=== PATIENT | female | born 1970 | race Two or more races ===

== ENCOUNTER 2016-10-30 16:21 | Emergency (ER) | payer MEDICAID ==
[~2016-10-30] VITALS: Ht 157.5 cm; Wt 70.3 kg
[2016-10-30 17:46] LABS: Basophils # (auto) 0.1 uL; Basophils % (auto) 0.7 % (0.0-2.0); Eosinophils # (auto) 0.1 uL; Eosinophils % (auto) 0.6 % (0.0-7.0); Hematocrit 44.7 % (36.0-46.0); Hemoglobin 14.9 g/dL (12.2-16.2); Lymphocytes # (auto) 3.5 uL; Lymphocytes % (auto) 38.7 % (10.0-50.0); Mean Corpuscular Hemoglobin 27.7 pg (28.0-32.0); Mean Corpuscular Hgb Conc. 33.5 g/dL (32.0-36.0); Mean Corpuscular Volume 82.7 fL (80.0-100.0); Mean Platelet Volume 10.6 fL (7.4-10.4); Monocytes # (auto) 0.6 uL; Monocytes % (auto) 6.6 % (0.0-12.0); Neutrophils # (auto) 4.8 uL; Neutrophils % (auto) 53.4 % (37.0-80.0); Platelet Count (auto) 163 10^3/uL (140-450)
[2016-10-30 18:03] LABS: Albumin 4.3 g/dL (3.4-5.0); Alkaline Phosphatase 74 U/L (45-117); Anion Gap 10 (5-15); Aspartate Aminotransferase 14 U/L (15-37); BUN/Creatinine Ratio 18.7; Bilirubin, Total 0.2 mg/dL (0.2-1.0); Blood Urea Nitrogen 14 mg/dL (7-18); Calcium 9.4 mg/dL (8.5-10.1); Carbon Dioxide 23 mmol/L (21-32); Chloride 106 mmol/L (98-107); GFR African American 107 mL/min; GFR Non-African American 88 mL/min; Glucose 102 mg/dL (74-106); Magnesium 2.7 mg/dL (1.6-2.6); Sodium 139 mmol/L (136-145); Total Protein 8.5 g/dL (6.4-8.2)
[2016-10-30 22:34] VITALS: BP 128/73
== END 2016-10-30 23:51 | disposition home or self-care (01) ==
LOC: ER 16:31
DX: K52.9 Noninfective gastroenteritis and colitis, unspecified (principal); E86.0 Dehydration; R51 Headache; R42 Dizziness and giddiness; E83.41 Hypermagnesemia
CPT/HCPCS: 36415; 70450; 80053; 83735; 84484; 85025; 93005

== ENCOUNTER 2018-08-27 13:02 | Emergency (ER) | payer MEDICAID ==
[~2018-08-27] VITALS: Ht 160 cm; Wt 72.6 kg
[2018-08-27] MEDS ORDERED: LORazepam 2MG/ML-1ML VIAL IV ONE ×2 (14:30→14:45)
[2018-08-27] MEDS ORDERED: LEVETIRACETAM INJ 1,000 MG in D5W 5% 100 ML IV ONE (14:30)
[2018-08-27] MEDS ORDERED: SODIUM CHLORIDE 0.9% 500 ML IVB ONE (14:36)
[2018-08-27] MEDS ORDERED: SODIUM CHLORIDE 0.9% 1,000 ML IV ONE (14:36)
[2018-08-27 15:17] LABS: Albumin 3.7 g/dL (3.4-5.0); BUN/Creatinine Ratio 28.3; Calcium 8.7 mg/dL (8.5-10.1); Potassium 3.3 mmol/L (3.5-5.1)
[2018-08-27 15:19] LABS: Bilirubin, Total 0.3 mg/dL (0.2-1.0); Total Protein 7.7 g/dL (6.4-8.2)
[2018-08-27 15:37] LABS: Basophils # (auto) 0.1 uL; Basophils % (auto) 0.5 % (0.0-2.0); Eosinophils # (auto) 0.1 uL; Eosinophils % (auto) 0.8 % (0.0-7.0); Hematocrit 43.1 % (36.0-46.0); Hemoglobin 14.5 g/dL (12.2-16.2); Lymphocytes # (auto) 1.4 uL; Lymphocytes % (auto) 15.5 % (10.0-50.0); Mean Corpuscular Hemoglobin 28.5 pg (28.0-32.0); Mean Corpuscular Hgb Conc. 33.7 g/dL (32.0-36.0); Mean Corpuscular Volume 84.6 fL (80.0-100.0); Monocytes # (auto) 0.6 uL; Monocytes % (auto) 6.3 % (0.0-12.0); Neutrophils # (auto) 7.2 uL; Neutrophils % (auto) 76.9 % (37.0-80.0); Platelet Count (auto) 135 10^3/uL (140-450); Red Cell Distribution Width 13.2 % (11.8-14.3); White Blood Cell 9.3 10^3/uL (4.4-10.8)
[2018-08-27 16:22] LABS: Alcohol, Urine < 3.0 mg/dL (0-5); Amphetamine Screen, Urine NEGATIVE (NEGATIVE); Barbiturate Scree,Urine NEGATIVE (NEGATIVE); Benzodiazephine Screen, Urine NEGATIVE (NEGATIVE); Cannabinoid Screen, Urine NEGATIVE (NEGATIVE); Cocaine Screen, Urine NEGATIVE (NEGATIVE); Opiate Scree,Urine NEGATIVE (NEGATIVE); Phencyclidine Screen, Urine NEGATIVE (NEGATIVE)
[2018-08-27 17:05] LABS: Urine Bacteria FEW /hpf (None Seen); Urine Blood TRACE /uL (Negative); Urine Specific Gravity 1.008 (1.001-1.035); Urine WBC 1 /hpf (0 - 5)
[2018-08-27] MEDS ORDERED: IOHEXOL 350 MG/ML 100ML IJ ONE (17:54)
[2018-08-27] MEDS ORDERED: POTASSIUM EFFERVESENT TAB 25 MEQ PO ONE (18:15)
[2018-08-27 18:50] VITALS: BP 135/62
== END 2018-08-27 19:00 | disposition home or self-care (01) ==
LOC: ER 13:02 → EDBD 13:02 → ER 19:00
DX: G40.909 Epilepsy, unspecified, not intractable, without status epilepticus (principal); E87.6 Hypokalemia
CPT/HCPCS: 36415; 70450; 71046; 71250; 80053; 80307; 81001; 83735; 84443; 85025; 93005; 96374; 96375; 99284; J1953; J2060; J7030; J7040; J7060

== ENCOUNTER 2020-09-07 12:46 | Emergency (ER) | payer MEDICAID ==
[~2020-09-07] VITALS: Ht 162.6 cm; Wt 63.5 kg
[2020-09-07 14:32] LABS: Basophils # (auto) 0.1 10 ^3/uL (0-0.2); Eosinophils # (auto) 0 10 ^3/uL (0-0.8); Eosinophils % (auto) 0.2 % (0.0-7.0); Hematocrit 40.6 % (36.0-46.0); Hemoglobin 13.8 g/dL (12.2-16.2); Lymphocytes # (auto) 1.7 10 ^3/uL (0.4-5.4); Lymphocytes % (auto) 29.9 % (10.0-50.0); Mean Corpuscular Hemoglobin 27.9 pg (28.0-32.0); Mean Corpuscular Hgb Conc. 33.9 g/dL (32.0-36.0); Mean Corpuscular Volume 82.4 fL (80.0-100.0); Monocytes # (auto) 0.4 10 ^3/uL (0-1.3); Monocytes % (auto) 6.5 % (0.0-12.0); Neutrophils # (auto) 3.6 10 ^3/uL (1.6-8.6); Neutrophils % (auto) 62.4 % (37.0-80.0); Nucleated Red Blood Cells % 0.2 %; Red Blood Cells 4.93 10^6/uL (4.0-5.20); Red Cell Distribution Width 12.7 % (11.8-14.3); White Blood Cell 5.8 10^3/uL (4.4-10.8)
[2020-09-07 14:37] LABS: Anion Gap 9 (5-15); Blood Urea Nitrogen 16 mg/dL (7-18); Calcium 9.1 mg/dL (8.5-10.1); Carbon Dioxide 24 mmol/L (21-32); Chloride 106 mmol/L (98-107); GFR African American 168 mL/min; GFR Non-African American 139 mL/min; Glucose 91 mg/dL (74-106); Potassium 3.8 mmol/L (3.5-5.1); Sodium 139 mmol/L (136-145)
[2020-09-07] MEDS ORDERED: SODIUM CHLORIDE 0.9% 500 ML IV ONE (14:45)
[2020-09-07 15:26] VITALS: BP 173/92
== END 2020-09-07 15:59 | disposition home or self-care (01) ==
LOC: ER 12:46 → EDBD 12:46 → ER 15:55
DX: T88.1XXA Other complications following immunization, not elsewhere classified, initial encounter (principal); T50.Z95A Adverse effect of other vaccines and biological substances, initial encounter; R55 Syncope and collapse; Z88.6 Allergy status to analgesic agent; Z88.0 Allergy status to penicillin; X58.XXXA Exposure to other specified factors, initial encounter
CPT/HCPCS: 36415; 80048; 84484; 85025; 93005; 96360

== ENCOUNTER 2020-11-11 11:01 | Inpatient (IN) | payer MEDICAID ==
[~2020-11-11] VITALS: Ht 160 cm; Wt 70.0 kg
[2020-11-11 12:02] LABS: Urine Bacteria FEW /hpf (None Seen); Urine Blood TRACE /uL (Negative); Urine Specific Gravity 1.005 (1.001-1.035); Urine WBC <1 /hpf (0 - 5)
[2020-11-11] MEDS ORDERED: KETOROLAC TROMETH 60MG/2ML VIAL IM ONE (12:45)
[2020-11-11 13:11] LABS: Basophils # (auto) 0.1 10 ^3/uL (0-0.2); Basophils % (auto) 1.5 % (0.0-2.0); Eosinophils # (auto) 0 10 ^3/uL (0-0.8); Eosinophils % (auto) 0.4 % (0.0-7.0); Hematocrit 43.4 % (36.0-46.0); Hemoglobin 14.3 g/dL (12.2-16.2); Lymphocytes # (auto) 2.2 10 ^3/uL (0.4-5.4); Mean Corpuscular Hemoglobin 27.6 pg (28.0-32.0); Mean Corpuscular Hgb Conc. 32.9 g/dL (32.0-36.0); Mean Corpuscular Volume 83.8 fL (80.0-100.0); Monocytes # (auto) 0.5 10 ^3/uL (0-1.3); Monocytes % (auto) 6.4 % (0.0-12.0); Neutrophils # (auto) 4.6 10 ^3/uL (1.6-8.6); Neutrophils % (auto) 61.7 % (37.0-80.0); Nucleated Red Blood Cells % 0.1 %; Platelet Count (auto) 175 10^3/uL (140-450); Red Blood Cells 5.18 10^6/uL (4.0-5.20); Red Cell Distribution Width 12.9 % (11.8-14.3); White Blood Cell 7.4 10^3/uL (4.4-10.8)
[2020-11-11 13:27] LABS: Albumin 4.1 g/dL (3.4-5.0); Calcium 9.3 mg/dL (8.5-10.1); Potassium 4.3 mmol/L (3.5-5.1)
[2020-11-11 13:30] LABS: BUN/Creatinine Ratio 32.8; Bilirubin, Total 0.3 mg/dL (0.2-1.0); Total Protein 8.2 g/dL (6.4-8.2)
[2020-11-11] MEDS ORDERED: SUCRALFATE 1 GM/10 ML ORAL SUSP PO ONE (13:45)
[2020-11-11] MEDS ORDERED: PANTOPRAZOLE 40 MG/10 ML VIAL INJ IV ONE (13:45)
[2020-11-11] MEDS ORDERED: LACTATED RINGER'S 1,000 ML IV ONE (13:45)
[2020-11-11] MEDS ORDERED: NITROGLYCERIN 0.4 MG SL TAB SL PRN ×2 (13:45→18:00)
[2020-11-11] MEDS ORDERED: SODIUM CHLORIDE 0.9% 1,000 ML IV ONE (13:45)
[2020-11-11] MEDS: D5W/SOD CHLO 0.9% 1,000 ML IV SCH (13:45)
[2020-11-11] MEDS ORDERED: MORPHINE SULF INJ 2 MG/ML SYRINGE 1ML IV PRN ×3 (13:45→18:00)
[2020-11-11] MEDS ORDERED: HYDROmorphone HCL 2 MG/ML VL IV ONE (15:15)
[2020-11-11] MEDS ORDERED: ALUM & MAG HYDROX-SIMETH LIQ(MAALOX) 30 ML PO ONE (18:00)
[2020-11-11] MEDS ORDERED: HYDROmorphone HCL 2 MG/ML VL IV PRN (18:00)
[2020-11-11] MEDS ORDERED: LORazepam 0.5 MG TAB PO PRN (18:00)
[2020-11-11] MEDS ORDERED: LORazepam 2MG/ML-1ML VIAL IV PRN (18:00)
[2020-11-11] MEDS ORDERED: metroNIDAZOLE 500MG/100ML 100 ML IV ONE (18:00)
[2020-11-11] MEDS ORDERED: HYDROcodone-ACET 5/325MG TAB PO PRN (18:00)
[2020-11-11] MEDS ORDERED: AZTREONAM 1GM INJ 1 GM in D5W 5% 50 ML IV ONE (18:00)
[2020-11-11] MEDS: AZTREONAM 1GM INJ 1 GM in D5W 5% 50 ML IV SCH (18:50)
[2020-11-11] MEDS: SUCRALFATE 1 GM/10 ML ORAL SUSP PO SCH ×2 (18:50→22:12)
[2020-11-11] MEDS: ENOXAPARIN SOD 40 MG/0.4 ML SYRINGE SC SCH (18:51)
[2020-11-11 19:52] VITALS: BP 138/78
[2020-11-11 22:00] VITALS: BP 145/81
[2020-11-11] MEDS: METOPROLOL TARTRATE 25 MG TAB PO SCH (22:13)
[2020-11-11] MEDS: metroNIDAZOLE 500MG/100ML 100 ML IV SCH (22:13)
[2020-11-12] MEDS: AZTREONAM 1GM INJ 1 GM in D5W 5% 50 ML IV SCH ×3 (02:36→18:00)
[2020-11-12] MEDS: metroNIDAZOLE 500MG/100ML 100 ML IV SCH ×3 (04:00→21:26)
[2020-11-12 05:00] VITALS: BP 118/75
[2020-11-12 05:22] LABS: Basophils # (auto) 0.1 10 ^3/uL (0-0.2); Basophils % (auto) 0.9 % (0.0-2.0); Eosinophils # (auto) 0 10 ^3/uL (0-0.8); Eosinophils % (auto) 0.6 % (0.0-7.0); Hematocrit 40.4 % (36.0-46.0); Hemoglobin 13.9 g/dL (12.2-16.2); Lymphocytes # (auto) 2.1 10 ^3/uL (0.4-5.4); Lymphocytes % (auto) 33.6 % (10.0-50.0); Mean Corpuscular Hemoglobin 28.4 pg (28.0-32.0); Mean Corpuscular Hgb Conc. 34.3 g/dL (32.0-36.0); Mean Corpuscular Volume 82.9 fL (80.0-100.0); Monocytes # (auto) 0.6 10 ^3/uL (0-1.3); Monocytes % (auto) 9.4 % (0.0-12.0); Neutrophils # (auto) 3.5 10 ^3/uL (1.6-8.6); Neutrophils % (auto) 55.5 % (37.0-80.0); Nucleated Red Blood Cells % 0.1 %; Platelet Count (auto) 163 10^3/uL (140-450); Red Blood Cells 4.87 10^6/uL (4.0-5.20); Red Cell Distribution Width 12.8 % (11.8-14.3); White Blood Cell 6.4 10^3/uL (4.4-10.8)
[2020-11-12 05:30] LABS: Partial Thromboplastin Time 30.4 sec (23.0-31.2)
[2020-11-12 05:41] LABS: Chloride 110 mmol/L (98-107); Potassium 3.6 mmol/L (3.5-5.1); Sodium 141 mmol/L (136-145)
[2020-11-12 05:56] LABS: Alanine Aminotransferase 18 U/L (13-56); Albumin 3.6 g/dL (3.4-5.0); Alkaline Phosphatase 71 U/L (45-117); Anion Gap 8 (5-15); Aspartate Aminotransferase 15 U/L (15-37); BUN/Creatinine Ratio 24.1; Bilirubin, Total 0.6 mg/dL (0.2-1.0); Blood Urea Nitrogen 14 mg/dL (7-18); Calcium 8.2 mg/dL (8.5-10.1); Carbon Dioxide 23 mmol/L (21-32); Cholesterol 204 mg/dL (< 200); GFR African American 142 mL/min; GFR Non-African American 117 mL/min; Glucose 108 mg/dL (74-106); HDL Cholesterol 61 mg/dL (40-59); LDL Cholesterol 118 mg/dL (< 100); Magnesium 2.5 mg/dL (1.6-2.6); Phosphorus 2.7 mg/dL (2.5-4.90); Total Protein 7.3 g/dL (6.4-8.2); Triglycerides 155 mg/dL (< 150)
[2020-11-12] MEDS: D5W/SOD CHLO 0.9% 1,000 ML IV SCH ×2 (06:06→16:21)
[2020-11-12] MEDS: SUCRALFATE 1 GM/10 ML ORAL SUSP PO SCH ×4 (06:07→21:26)
[2020-11-12 09:00] VITALS: BP 131/99
[2020-11-12] MEDS: PANTOPRAZOLE 40 MG/10 ML VIAL INJ IV SCH (09:31)
[2020-11-12] MEDS: ENOXAPARIN SOD 40 MG/0.4 ML SYRINGE SC SCH (09:32)
[2020-11-12] MEDS: METOPROLOL TARTRATE 25 MG TAB PO SCH ×2 (09:35→21:27)
[2020-11-12] MEDS: DOCUSATE SOD 100 MG CAP PO SCH (09:35)
[2020-11-12 09:47] LABS: Alcohol, Urine < 3.0 mg/dL (0-10); Amphetamine Screen, Urine NEGATIVE (NEGATIVE); Barbiturate Scree,Urine NEGATIVE (NEGATIVE); Benzodiazephine Screen, Urine NEGATIVE (NEGATIVE); Cannabinoid Screen, Urine NEGATIVE (NEGATIVE); Cocaine Screen, Urine NEGATIVE (NEGATIVE); Opiate Scree,Urine NEGATIVE (NEGATIVE); Phencyclidine Screen, Urine NEGATIVE (NEGATIVE)
[2020-11-12 13:00] VITALS: BP 120/74
[2020-11-12 17:00] VITALS: BP 131/83
[2020-11-12 22:00] VITALS: BP 122/76
[2020-11-13] MEDS: AZTREONAM 1GM INJ 1 GM in D5W 5% 50 ML IV SCH ×3 (02:14→17:19)
[2020-11-13] MEDS: metroNIDAZOLE 500MG/100ML 100 ML IV SCH ×3 (03:47→21:15)
[2020-11-13] MEDS: ONDANSETRON HCL 4 MG/2 ML VIAL IV PRN ×2 (04:21→14:08)
[2020-11-13 05:00] VITALS: BP 118/77
[2020-11-13] MEDS: D5W/SOD CHLO 0.9% 1,000 ML IV SCH ×2 (06:03→17:19)
[2020-11-13] MEDS: SUCRALFATE 1 GM/10 ML ORAL SUSP PO SCH ×4 (06:11→21:15)
[2020-11-13 08:06] LABS: Basophils # (auto) 0.1 10 ^3/uL (0-0.2); Basophils % (auto) 0.8 % (0.0-2.0); Eosinophils # (auto) 0 10 ^3/uL (0-0.8); Eosinophils % (auto) 0.4 % (0.0-7.0); Hematocrit 39.8 % (36.0-46.0); Hemoglobin 13.7 g/dL (12.2-16.2); Lymphocytes # (auto) 2.2 10 ^3/uL (0.4-5.4); Lymphocytes % (auto) 30.3 % (10.0-50.0); Mean Corpuscular Hemoglobin 28.6 pg (28.0-32.0); Mean Corpuscular Hgb Conc. 34.4 g/dL (32.0-36.0); Mean Corpuscular Volume 83.4 fL (80.0-100.0); Monocytes # (auto) 0.5 10 ^3/uL (0-1.3); Monocytes % (auto) 6.8 % (0.0-12.0); Neutrophils # (auto) 4.4 10 ^3/uL (1.6-8.6); Neutrophils % (auto) 61.7 % (37.0-80.0); Nucleated Red Blood Cells % 0.1 %; Platelet Count (auto) 158 10^3/uL (140-450); Red Blood Cells 4.78 10^6/uL (4.0-5.20); Red Cell Distribution Width 12.7 % (11.8-14.3); White Blood Cell 7.1 10^3/uL (4.4-10.8)
[2020-11-13 08:17] LABS: INR 0.99 (0.9-1.15); Partial Thromboplastin Time 28.5 sec (23.0-31.2)
[2020-11-13 08:18] LABS: Albumin 3.7 g/dL (3.4-5.0); Calcium 8.6 mg/dL (8.5-10.1); Magnesium 2.4 mg/dL (1.6-2.6); Potassium 3.6 mmol/L (3.5-5.1)
[2020-11-13 08:21] LABS: BUN/Creatinine Ratio 12.1; Bilirubin, Total 0.4 mg/dL (0.2-1.0); Phosphorus 2.8 mg/dL (2.5-4.90); Total Protein 7.3 g/dL (6.4-8.2)
[2020-11-13 08:57] VITALS: BP 117/72
[2020-11-13] MEDS: DOCUSATE SOD 100 MG CAP PO SCH (09:27)
[2020-11-13] MEDS: METOPROLOL TARTRATE 25 MG TAB PO SCH ×2 (09:27→21:15)
[2020-11-13] MEDS: ENOXAPARIN SOD 40 MG/0.4 ML SYRINGE SC SCH (09:28)
[2020-11-13] MEDS: PANTOPRAZOLE 40 MG/10 ML VIAL INJ IV SCH (09:28)
[2020-11-13 13:01] VITALS: BP 131/79
[2020-11-13 17:03] VITALS: BP 125/72
[2020-11-13 21:07] VITALS: BP 123/75
[2020-11-14] MEDS: AZTREONAM 1GM INJ 1 GM in D5W 5% 50 ML IV SCH ×2 (02:45→09:22)
[2020-11-14] MEDS: metroNIDAZOLE 500MG/100ML 100 ML IV SCH (04:14)
[2020-11-14 04:24] VITALS: BP 105/57
[2020-11-14] MEDS: SUCRALFATE 1 GM/10 ML ORAL SUSP PO SCH ×2 (06:11→11:30)
[2020-11-14 07:15] LABS: Basophils # (auto) 0.1 10 ^3/uL (0-0.2); Eosinophils # (auto) 0 10 ^3/uL (0-0.8); Eosinophils % (auto) 0.7 % (0.0-7.0); Hematocrit 39.9 % (36.0-46.0); Hemoglobin 13.1 g/dL (12.2-16.2); Lymphocytes # (auto) 2.3 10 ^3/uL (0.4-5.4); Lymphocytes % (auto) 37.6 % (10.0-50.0); Mean Corpuscular Hemoglobin 27.5 pg (28.0-32.0); Mean Corpuscular Hgb Conc. 32.9 g/dL (32.0-36.0); Mean Corpuscular Volume 83.6 fL (80.0-100.0); Monocytes # (auto) 0.5 10 ^3/uL (0-1.3); Monocytes % (auto) 8.7 % (0.0-12.0); Neutrophils # (auto) 3.2 10 ^3/uL (1.6-8.6); Nucleated Red Blood Cells % 0.1 %; Platelet Count (auto) 159 10^3/uL (140-450); Red Blood Cells 4.77 10^6/uL (4.0-5.20); Red Cell Distribution Width 12.8 % (11.8-14.3); White Blood Cell 6.1 10^3/uL (4.4-10.8)
[2020-11-14 07:31] LABS: INR 1.01 (0.9-1.15); Partial Thromboplastin Time 29.5 sec (23.0-31.2)
[2020-11-14 07:33] LABS: Potassium 3.7 mmol/L (3.5-5.1)
[2020-11-14 07:42] LABS: Albumin 3.5 g/dL (3.4-5.0); BUN/Creatinine Ratio 14.1; Bilirubin, Total 0.4 mg/dL (0.2-1.0); Calcium 8.9 mg/dL (8.5-10.1); Magnesium 2.2 mg/dL (1.6-2.6); Phosphorus 3.3 mg/dL (2.5-4.90)
[2020-11-14 09:00] VITALS: BP 117/79
[2020-11-14] MEDS: DOCUSATE SOD 100 MG CAP PO SCH (09:16)
[2020-11-14] MEDS: METOPROLOL TARTRATE 25 MG TAB PO SCH (09:17)
[2020-11-14] MEDS: PANTOPRAZOLE 40 MG/10 ML VIAL INJ IV SCH (09:21)
[2020-11-14] MEDS: ENOXAPARIN SOD 40 MG/0.4 ML SYRINGE SC SCH (09:22)
[2020-11-14] MEDS: D5W/SOD CHLO 0.9% 1,000 ML IV SCH (09:23)
[2020-11-14 13:00] VITALS: BP 124/70
== END 2020-11-14 16:00 | disposition home or self-care (01) | DRG 282 ==
LOC: ER 11:01 → TELE 13:41 → TELE-WESTW 17:36
PROVIDERS: ADMIT Hospitalist; ATTEND Hospitalist
DX: K85.10 Biliary acute pancreatitis without necrosis or infection (principal); E66.3 Overweight; K52.9 Noninfective gastroenteritis and colitis, unspecified; E78.5 Hyperlipidemia, unspecified; E86.0 Dehydration; G40.909 Epilepsy, unspecified, not intractable, without status epilepticus; J98.11 Atelectasis; K29.00 Acute gastritis without bleeding; K29.20 Alcoholic gastritis without bleeding; K59.00 Constipation, unspecified; N39.0 Urinary tract infection, site not specified; N83.201 Unspecified ovarian cyst, right side; Z20.822 Contact with and (suspected) exposure to COVID-19; Z88.5 Allergy status to narcotic agent; Z88.0 Allergy status to penicillin; Z68.27 Body mass index [BMI] 27.0-27.9, adult; Z82.49 Family history of ischemic heart disease and other diseases of the circulatory system; Z83.3 Family history of diabetes mellitus; Z86.11 Personal history of tuberculosis; Z90.710 Acquired absence of both cervix and uterus
CPT/HCPCS: 36415; 71045; 74176; 76705; 76830; 76856; 80053; 80061; 80307; 81001; 82150; 82306; 82728; 83036; 83516; 83690; 83735; 83880; 84100; 84443; 84484; 85025; 85610; 85730; 86225; 86235; 87040; 87086; 87426; 96361; 96372; 96374; C9113; G0378; J1885; J2405; J3490; J7042; J7060

== ENCOUNTER 2023-05-27 06:44 | Emergency (ER) | payer MEDICAID ==
[~2023-05-27] VITALS: Ht 157.5 cm; Wt 71.2 kg
[2023-05-27 07:34] LABS: Basophils # (auto) 0.1 10 ^3/uL (0-0.2); Basophils % (auto) 0.8 % (0.0-2.0); Eosinophils # (auto) 0 10 ^3/uL (0-0.8); Hematocrit 42.3 % (36.0-46.0); Hemoglobin 13.7 g/dL (12.2-16.2); Lymphocytes # (auto) 0.6 10 ^3/uL (0.4-5.4); Lymphocytes % (auto) 4.2 % (10.0-50.0); Mean Corpuscular Hemoglobin 26.6 pg (28.0-32.0); Mean Corpuscular Hgb Conc. 32.4 g/dL (32.0-36.0); Mean Corpuscular Volume 82.1 fL (80.0-100.0); Monocytes # (auto) 0.4 10 ^3/uL (0-1.3); Monocytes % (auto) 2.9 % (0.0-12.0); Neutrophils # (auto) 12.8 10 ^3/uL (1.6-8.6); Neutrophils % (auto) 92.1 % (37.0-80.0); Red Blood Cells 5.15 10^6/uL (4.0-5.20); Red Cell Distribution Width 12.5 % (11.8-14.3); White Blood Cell 13.9 10^3/uL (4.4-10.8)
[2023-05-27 07:42] LABS: Urine Bacteria FEW /hpf (None Seen); Urine Blood TRACE /uL (Negative); Urine Clarity Clear (Clear); Urine Protein, UAD Negative (Negative); Urine Specific Gravity 1.015 (1.001-1.035); Urine Urobilinogen Normal (Negative); Urine WBC 18 /hpf (0 - 5); Urine pH 6.5 (5.0-8.0)
[2023-05-27 07:45] VITALS: PULSE 126; RESP 24; O2SAT 95
[2023-05-27 07:52] VITALS: TEMP 97.8
[2023-05-27 07:52] LABS: Alanine Aminotransferase 25 U/L (7-40); Albumin 4.7 g/dL (3.2-4.8); Alkaline Phosphatase 107 U/L (46-116); Anion Gap 9 (5-15); Aspartate Aminotransferase 15 U/L (13-40); BUN/Creatinine Ratio 27.3 (10.0-20.0); Blood Urea Nitrogen 21 mg/dL (9-23); Calcium 9.9 mg/dL (8.5-10.1); Carbon Dioxide 25 mmol/L (20-30); Chloride 103 mmol/L (98-107); Glucose 145 mg/dL (74-106); Potassium 4.6 mmol/L (3.5-5.1); Sodium 137 mmol/L (136-145)
[2023-05-27 07:53] LABS: Bilirubin, Total 0.8 mg/dL (0.2-1.0); Total Protein 7.5 g/dL (5.7-8.2)
[2023-05-27 08:07] LABS: Urine Color Straw (Yellow)
[2023-05-27] MEDS ORDERED: MORPHINE SULFATE INJ 2 MG/ml SYRG IV ONE (09:00)
[2023-05-27] MEDS ORDERED: ONDANSETRON HCL 4 MG/2 ML VIAL IV ONE (09:00)
[2023-05-27 09:29] LABS: INR 0.97 (0.9-1.15); Partial Thromboplastin Time 26.4 SEC (24.5-34.5); Prothrombin Time 10.2 sec (9.3-11.8)
[2023-05-27] MEDS ORDERED: cefTRIAXone 1GM/50ML D5W 50 ML IV ONE (11:15)
[2023-05-27] MEDS ORDERED: CEPH500T PO (11:32)
[2023-05-27 11:47] VITALS: O2SAT 100
[2023-05-27 11:50] VITALS: BP 101/61; PULSE 86; RESP 15
== END 2023-05-27 11:53 | disposition home or self-care (01) ==
LOC: ER 06:44
DX: N39.0 Urinary tract infection, site not specified (principal); R07.89 Other chest pain; Z88.0 Allergy status to penicillin; Z88.5 Allergy status to narcotic agent; Z88.8 Allergy status to other drugs, medicaments and biological substances
CPT/HCPCS: 36415; 74176; 80053; 81001; 83690; 84484; 85025; 85610; 85730; 87086; 87088; 87186; 93005; 96365; 96375; 99285; J0696; J2270; J2405